=== PATIENT | male | born 1980 | race Caucasian/White ===

== ENCOUNTER 2023-05-05 06:36 | Day surgery (SDC) | payer BC ==
[~2023-05-05] VITALS: Ht 188 cm; Wt 95.5 kg
[~2023-05-05 06:36] MED LIST: LR 1,000 ML IV SCH; Ondansetron 4 MG/2 ML VIAL IV PRN
[2023-05-05] MEDS ORDERED: DEPO-TESTOS200 MG/M1 IM (06:48)
[2023-05-05] MEDS ORDERED: LEXAPRO 5MG5 MG PO (06:48)
[2023-05-05 07:06] VITALS: BP 125/72; PULSE 72; TEMP 97
--- NOTE | 2023-05-05 07:08 | NUR ---
Pt reports bowels are clear and had no difficulty with the prep; at chairside; 20G to RAC with LR at KVO; VSS; consents signed and no questions; to await procedure.
[2023-05-05] MEDS ORDERED: Lidocaine PF 2% (20 MG/ML) 5 ML VIAL ONE (08:28)
[2023-05-05 09:18] VITALS: BP 102/73; PULSE 69; TEMP 97
[2023-05-05 09:33] VITALS: BP 107/74; PULSE 60
--- NOTE | 2023-05-05 09:50 | NUR ---
09-PT ARRIVED VIA CART TO [facility], PATIENT ALERT ON ARRIVAL. AMBULATED WITH ASSISTANCE TO RECLINER, WARM BLANKET PROVIDED. VITAL SIGNS TAKEN, VSS. PT DENIES PAIN OR NAUSEA. REPORT OBTAINED FROM LALY JAMES. UPDATE GIVEN TO PATIENT AND FAMILY AT BEDSIDE. 0933-VSS. PT TOLERATING PO INTAKE WITHOUT COMPLAINTS, DENIES PAIN OR NAUSEA. 40-DISCHARGE INSTRUCTIONS REVIEWED WITH PT AND FAMILY, QUESTIONS INVITED. PATIENT CHANGED INTO CLOTHING INDEPENDENTLY. 939-IV CATHETER DISCONTINUED, TIP INTACT. PRESSURE HELD AND BANDAGE APPLIED. 49-PATIENT DISCHARGED HOME TO [facility] VIA WHEELCHAIR, ACCOMPANIED BY FAMILY. ALL BELONGINGS AND D/C PAPERWORK SENT WITH PT.
== END 2023-05-05 09:49 | disposition home or self-care (01) ==
LOC: SDCO 06:36
DX: Z12.11 Encounter for screening for malignant neoplasm of colon (principal); F17.220 Nicotine dependence, chewing tobacco, uncomplicated
CPT/HCPCS: J2704; J7120